=== PATIENT | female | born 1950 | race Caucasian/White ===

== ENCOUNTER 2016-11-24 11:10 | Emergency (ER) | payer BC ==
[2016-11-24 11:24] VITALS: BP 150/92; PULSE 95; TEMP 98.2; BMI 24.2
[2016-11-24] MEDS ORDERED: morphine CARPU-JECT 2 MG/1 ML DISP.SYRIN SQ ONE (11:31)
[2016-11-24] MEDS ORDERED: morphine CARPU-JECT 4 MG/1 ML DISP.SYRIN ONE (11:44)
--- NOTE | 2016-11-24 12:14 | PDOC ---
History of Present Illness - General Chief Complaint: Injury Stated Complaint: LT ARM FRACTURE (REFERRAL SENT) Time Seen by Provider: 11/24/16 11:21 History Source: Patient Exam Limitations: No Limitations - History of Present Illness Initial Comments: 11/24/16 12:14 66-year-old female presents to the ED status post fall last night. Patient was drinking alcohol when she tripped causing her to land on her left arm. Patient states went to a local urgent care clinic which stated she had a left humeral commutated fracture requiring an emergency room visit. Patient denies any sensory changes distal of the injury previous injury to the affected area, and did not take anything for the pain. Patient denies any blood thinner use or hypercoagulable state. Occurred: reports: this evening Severity: reports: moderate Pain Location: reports: upper extremity Method of Injury: Yes: fall Associated Symptoms (Fall): denies symptoms Past History - Past Medical History Allergies/Adverse Reactions: Allergies Allergy/AdvReac Type Severity Reaction Status Date / Time Penicillins Allergy Verified 11/24/16 11:18 Home Medications: Ambulatory Orders No Home Medications 0 dose .ROUTE UTDICT 03/28/14 HTN: No (PRE HTN) - Psycho/Social/Smoking Cessation Hx Anxiety: No Suicidal Ideation: No Smoking History: Former smoker Have you smoked in the past 12 months: No Number of Cigarettes Smoked Daily: 0 If you are a former smoker, when did you quit?: 45 YRS Information on smoking cessation initiated: No Hx Alcohol Use: Yes (SOCIAL) Drug/Substance Use Hx: No Substance Use Type: None Patient Lives Alone: No Lives with/in: spouse/SO Review of Systems - Review of Systems Able to Perform ROS?: Yes Constitutional: No: Symptoms Reported HEENTM: No: Symptoms Reported Respiratory: No: Symptoms reported Cardiac (ROS): No: Symptoms Reported ABD/GI: No: Symptoms Reported : No: Symptoms Reported Musculoskeletal: Yes: Joint Pain (left upper arm), Muscle Pain Integumentary: Yes: Lumps (mild edema to proximal aspect of left humerus). No: Bruising, Erythema Neurological: No: Tingling, Weakness Hematologic/Lymphatic: No: Symptoms Reported *Physical Exam - Vital Signs Last Vital Signs Temp Pulse Resp BP Pulse Ox 98.2 F 95 H 20 150/92 98 11/24/16 11:16 11/24/16 11:16 11/24/16 11:16 11/24/16 11:16 11/24/16 11:16 - Physical Exam General Appearance: Yes: Nourished, Appropriately Dressed. No: Apparent Distress Neck: negative: Tender, Supple, Decreased range of motion, Tender lateral Respiratory/Chest: positive: Lungs Clear, Normal Breath Sounds. negative: Chest Tender, Respiratory Distress, Accessory Muscle Use Cardiovascular: positive: Regular Rhythm, Regular Rate. negative: Murmur Extremity: positive: Normal Capillary Refill, Tender (left proximal aspect of left humerus). negative: Normal Range of Motion, Other (no crepitus or palpable deformity) Integumentary: positive: Swelling (left upper humerus) Neurologic: positive: Normal Mood/Affect, Motor Strength 5/5 (left hand grasp) ED Treatment Course - RADIOLOGY Radiology Studies Ordered: Category Date Time Status HUMERUS-LEFT [RAD] Stat Radiology 11/24/16 11:40 Ordered - Medications Given in the ED: ED Medications Discontinued Medications Generic Name Dose Route Start Last Admin Trade Name Freq PRN Reason Stop Dose Admin Morphine Sulfate 4 mg 11/24/16 11:31 11/24/16 11:53 Morphine Injection - SQ 11/24/16 11:32 4 mg ONCE ONE Administration Medical Decision Making - Medical Decision Making 11/24/16 12:19 Pt s/p fall with comminuted left humeral fx seen on xray at urgent care. Attempted to open cd to view films but received random numbers and letters. Will obtain xray and ordered for mso4 sq. 11/24/16 12:57 Left humerus x-ray shows comminuted left humeral head and neck fracture with an element of impaction. The other bones are intact. Case discussed with Dr. Rai to states place patient in the sling Patient either sit up or semi-upright at night, take pain medication such as Percocet and follow-up in the office on Friday at 3 PM. Patient placed in sling. *DC/Admit/Observation/Transfer Diagnosis at time of Disposition: Fracture of head of left humerus Qualifiers: Encounter type: initial encounter Fracture type: closed Qualified Code(s): S42.202A - Unspecified fracture of upper end of left humerus, initial encounter for closed fracture - Discharge Dispostion Disposition: HOME Condition at time of disposition: Improved - Referrals Referrals: Brenton Rai MD [Staff Physician] - - Patient Instructions Printed Discharge Instructions: How to Use a Sling, DI for Humeral Fracture Additional Instructions: Take Percocet as needed for discomfort but do not operate any heavy machinery or drink any alcohol while taking this. Follow up with Dr. Rai on Friday at 3 PM . Do not lie flat and apply ice to the affected area.
== END 2016-11-24 13:04 | disposition home or self-care (01) ==
LOC: JER 11:10 → JERFT 11:10
PROC: 3E023NZ Introduction of Analgesics, Hypnotics, Sedatives into Muscle, Percutaneous Approach (ICD-10-PCS; principal; 2016-11-24)
DX: S42.295D Other nondisplaced fracture of upper end of left humerus, subsequent encounter for fracture with routine healing (principal); S42.355D Nondisplaced comminuted fracture of shaft of humerus, left arm, subsequent encounter for fracture with routine healing; W19.XXXD Unspecified fall, subsequent encounter
CPT/HCPCS: 73060-TC-LT; 99281-25